=== PATIENT | female | born 1970 | race Caucasian/White ===

== ENCOUNTER 2017-09-12 15:35 | Emergency (ER) | payer SELFPAY ==
--- NOTE | 2017-09-12 15:49 | ED.PDOC ---
History of Present Illness - General Chief Complaint: Allergic Reaction Stated Complaint: allergic reaction Time Seen by Provider: 09/12/17 15:46 Source: patient, Vital Signs reviewed Exam Limitations: no limitations - History of Present Illness Timing/Duration: 1/2 hour, constant Severity: moderate Improving Factors: nothing Worsening Factors: nothing Associated Symptoms: malaise, nausea/vomiting, weakness Allergies/Adverse Reactions: Allergies Bee Venom Allergy (Verified 09/12/17 15:49) Anaphylaxis Home Medications: Ambulatory Orders Epinephrine [Epipen 2-Rolo] 0.3 mg IJ Q15MIN PRN #2 ml 09/12/17 predniSONE 20 mg PO BID #10 tab 09/12/17 Review of Systems - Review of Systems Constitutional: States: malaise, weakness EENTM: States: throat swelling. Denies: throat pain Respiratory: Denies: cough, short of breath, wheezing Cardiology: Denies: edema, syncope Gastrointestinal/Abdominal: States: nausea. Denies: abdominal pain, vomiting Genitourinary: Denies: dysuria, frequency Musculoskeletal: Denies: joint pain, joint swelling, muscle pain Skin: Denies: change in color, rash Neurological: States: anxiety, headache, tingling. Denies: paresthesia Endocrine: Denies: flushing Hematologic/Lymphatic: Denies: swollen glands Family Medical History - Family History Mother Family History: No Known Living Status: Still Living Physical Exam - Physical Exam General Appearance: Alert, Anxious Eye Exam: bilateral normal Ears, Nose, Throat: hearing grossly normal Neck: non-tender, supple Respiratory: lungs clear, normal breath sounds, no respiratory distress Cardiovascular/Chest: normal peripheral pulses, regular rate, rhythm Peripheral Pulses: radial,right: 2+, radial,left: 2+ Gastrointestinal/Abdominal: normal bowel sounds, non tender, soft Rectal Exam: deferred Extremity: normal range of motion, non-tender, no pedal edema 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 Copy, Patient Portal Self Enrollment Instructions: DI for Allergic Rhinitis Prescriptions: Epinephrine [Epipen 2-Rolo] 0.3 mg IJ Q15MIN PRN #2 ml PRN Reason: Redness/Allergies predniSONE 20 mg PO BID #10 tab Home Medications: Ambulatory Orders Epinephrine [Epipen 2-Rolo] 0.3 mg IJ Q15MIN PRN #2 ml 09/12/17 predniSONE 20 mg PO BID #10 tab 09/12/17
[2017-09-12] MEDS ORDERED: diphenhydrAMINE HCL 50 MG/ML VIAL IV ONE (15:51)
[2017-09-12] MEDS ORDERED: FAMOTIDINE IV PREMIX 20 MG in PREMIX BAG 1 BAG IVPB ONE (15:54)
[2017-09-12 15:58] VITALS: TEMP 99
[2017-09-12] MEDS ORDERED: FAMOTIDINE IV PREMIX 50 ML IVPB ONE (16:08)
[2017-09-12 16:19] VITALS: O2SAT 98
[2017-09-12] MEDS ORDERED: methylPREDNISolone SODIUM SUC 125 MG/2 ML VIAL IV ONE (16:20)
[2017-09-12] MEDS ORDERED: SODIUM CHLORIDE 0.9% 1000ML 1,000 ML IVS ONE (16:26)
[2017-09-12 17:43] VITALS: BP 133/73
== END 2017-09-12 17:44 | disposition home or self-care (01) ==
LOC: ER 15:35
DX: T63.441A Toxic effect of venom of bees, accidental (unintentional), initial encounter (principal); Z91.030 Bee allergy status; Y92.9 Unspecified place or not applicable
CPT/HCPCS: 36415; 80053; 85025; 93005; J1200; J2930; J3490; J7030

== ENCOUNTER 2020-02-13 18:33 | Emergency (ER) | payer SELFPAY ==
--- NOTE | 2020-02-13 18:50 | ED.PDOC ---
History of Present Illness - General Time Seen by Provider: 02/13/20 18:47 Additional Information: Patient presents with chief complaint of bee sting to left approximately 10 minutes prior to arrival. 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 Patient administered her EpiPen immediately following the insect bite and other than feeling generally bad she has no focal symptoms. Specifically, patient denies difficulty breathing, swallowing, speaking. She denies any swelling to her tongue or mouth. Patient is otherwise healthy and otherwise asymptomatic. She has no other complaints. - History of Present Illness Allergies/Adverse Reactions: Allergies Bee Venom Allergy (Verified 02/13/20 19:18) Anaphylaxis Home Medications: Ambulatory Orders Epinephrine [Epipen 2-Rolo] 0.3 mg IJ Q15MIN PRN #2 ml 09/12/17 predniSONE 20 mg PO BID #10 tab 09/12/17 Epinephrine [Epipen 2-Rolo] 0.3 mg IJ ONCE PRN #1 ml 02/13/20 Review of Systems - Review of Systems Constitutional: States: malaise. Denies: chills, fever EENTM: States: no symptoms reported. Denies: throat swelling, mouth swelling Respiratory: States: no symptoms reported. Denies: cough, short of breath Cardiology: States: no symptoms reported. Denies: chest pain, edema, palpitations Gastrointestinal/Abdominal: States: no symptoms reported. Denies: abdominal pain, nausea, vomiting Genitourinary: States: no symptoms reported Musculoskeletal: States: see HPI Skin: States: see HPI Neurological: States: no symptoms reported Endocrine: States: no symptoms reported Hematologic/Lymphatic: States: no symptoms reported All other Systems: Reviewed and Negative Past Medical History (General) - Patient Medical History Hx Stroke: No Hx Congestive Heart Failure: No Hx Diabetes: No - Vaccination History Hx Influenza Vaccination: No Hx Pneumococcal Vaccination: No - Social History Hx Tobacco Use: Yes Family Medical History - Family History Mother Family History: No Known Living Status: Still Living Physical Exam - Physical Exam General Appearance: Alert, Comfortable, No apparent distress Eye Exam: left normal Ears, Nose, Throat: normal ENT inspection, normal pharynx, other - Negative tonsillar edema, tongue edema, uvular edema. Normal voice. Neck: non-tender, full range of motion, supple, normal inspection Respiratory: chest non-tender, lungs clear, normal breath sounds, no respiratory distress, no accessory muscle use Cardiovascular/Chest: normal peripheral pulses, regular rate, rhythm, no edema Gastrointestinal/Abdominal: normal bowel sounds, non tender, soft Extremity: other - Very mild edema to the proximal phalanx of the left thumb. There is no obvious insect sting beth. No discrete lesions. Skin Exam: normal color, warm/dry Progress - Progress Progress: 02/13/20 18:53 Patient remains comfortable and stable following self injection of epinephrine which has successfully precluded anaphylaxis. Will give Solu-Medrol, IV fluids, Pepcid and observe. 02/13/20 20:03 Patient continues to feel perfectly fine except for localized pain in her left thumb at the site of insect sting. Patient's exam remains normal and there is no longer any clinical concern for anaphylaxis. I will discharge home with NSAIDs and refill for her EpiPen and patient will follow-up with her PCP as needed. Vital signs stable, patient is NAD and looks clinically well and I believe is safe for discharge with outpatient follow-up. Follow-up instructions, discharge instructions and return to ED precautions discussed with patient. Patient voices understanding and willingness to comply with instructions. All laboratory and radiographic results have been discussed with the patient, and all questions answered. Patient is happy with plan. Departure - Departure Clinical Impression: Insect bites Qualifiers: Encounter type: initial encounter Site of insect bite: finger Finger: thumb Laterality: left Qualified Code(s): S60.362A - Insect bite (nonvenomous) of left thumb, initial encounter; W57.XXXA - Bitten or stung by nonvenomous insect and other nonvenomous arthropods, initial encounter Disposition: Discharge to Home or Self Care Condition: Good Diet: resume usual diet Activity: increase activity as tolerated Referrals: THOR GERARDO MD [Active Staff] - 1-5 Days Prescriptions: Epinephrine [Epipen 2-Rolo] 0.3 mg IJ ONCE PRN #1 ml PRN Reason: Allergies Home Medications: Ambulatory Orders Epinephrine [Epipen 2-Rolo] 0.3 mg IJ Q15MIN PRN #2 ml 09/12/17 predniSONE 20 mg PO BID #10 tab 09/12/17 Epinephrine [Epipen 2-Rolo] 0.3 mg IJ ONCE PRN #1 ml 02/13/20
[2020-02-13] MEDS: methylPREDNISolone SODIUM SUC 125 MG/2 ML VIAL IV ONE (19:03)
[2020-02-13] MEDS: SODIUM CHLORIDE 0.9% 1000ML 1,000 ML IVS ONE (19:03)
[2020-02-13] MEDS: FAMOTIDINE IV PREMIX 20 MG in PREMIX BAG 1 BAG IVPB ONE (19:03)
[2020-02-13 19:18] VITALS: TEMP 97.9
[2020-02-13 19:38] VITALS: O2SAT 97
[2020-02-13 20:18] VITALS: BP 123/71
== END 2020-02-13 20:17 | disposition home or self-care (01) ==
LOC: ER 18:33
DX: S60.362A Insect bite (nonvenomous) of left thumb, initial encounter (principal); F17.200 Nicotine dependence, unspecified, uncomplicated; W57.XXXA Bitten or stung by nonvenomous insect and other nonvenomous arthropods, initial encounter; Y92.9 Unspecified place or not applicable
CPT/HCPCS: J2930; J3490; J7030

== ENCOUNTER → 2020-09-28 | Outpatient (CLI) | payer OTHER | LOC: YCFC.O 11:02 | PROVIDERS: ATTEND Nurse Practitioner Family | DX: Z20.828 Contact with and (suspected) exposure to other viral communicable diseases (principal) ==